=== PATIENT | female | born 1995 | race Caucasian/White ===

== ENCOUNTER 2019-10-30 12:10 | Emergency (ER) | payer OTHER, MEDICAID, SELFPAY ==
[2019-10-30 12:23] VITALS: BP 130/87; PULSE 88; RESP 18; TEMP 36.9; O2SAT 100
[2019-10-30 13:23] LABS: Influenza A - CEPHEID Flu A NEGATIVE (NEGATIVE); Influenza B - CEPHEID Flu B NEGATIVE (NEGATIVE)
--- NOTE | 2019-10-30 16:05 | ED.URI ---
HPI - URI/Sore Throat <AUGUSTO Hodges - Last Filed: 10/30/19 21:48> General Chief Complaint: Upper Respiratory Symptoms Stated Complaint: flu like symptoms Time Seen by Provider: 10/30/19 15:53 Source: patient Mode of arrival: Ambulatory Limitations: no limitations History of Present Illness HPI Narrative: 23-year-old female presents emergency department complaining of cough, rhinorrhea, sore throat, nasal congestion, and chills for the past 3-4 days. She states other people around her have been sick as well. She is unsure about fevers as she reports her thermometer is broken at home. She is worried she may have influenza. Patient denies any nausea, vomiting, diarrhea, abdominal pain, chest pain, shortness of breath, or other concerns. She does not take any medication and she denies any chronic illnesses such as asthma. Related Data Previous Rx's Medication Instructions Recorded promethazine-codeine 5 ml PO Q4HP PRN #120 ml 11/07/17 Allergies Allergy/AdvReac Type Severity Reaction Status Date / Time No Known Allergies Allergy Uncoded 01/10/18 12:48 Review of Systems <AUGUSTO Hodges - Last Filed: 10/30/19 21:48> Review of Systems Narrative: REVIEW OF SYSTEMS: GENERAL: Denies fevers. HENT: No head trauma or hearing loss. EYES: No loss of vision, double vision, eye pain, irritation or discharge. CARDIOVASCULAR: No chest pain or syncope. RESPIRATORY: No shortness of breath. Complains of cough, see HPI. GASTROINTESTINAL: No nausea, vomiting, diarrhea, or constipation. MUSCULOSKELETAL: No weakness or injury. INTEGUMENTARY: No rash, lesions, or pruritus. NEURO: No memory loss, or confusion. Patient History <AUGUSTO Hodges - Last Filed: 10/30/19 21:48> Medical History No significant medical problems (Acute) Social History Smoking Status: Current every day smoker Smoking Status: Current every day smoker Substance Use Type: marijuana Exam <AUGUSTO Hodges - Last Filed: 10/30/19 21:48> Initial Vital Signs Initial Vital Signs: Vital Signs Temperature 98.4 F 10/30/19 12:23 Pulse Rate 88 10/30/19 12:23 Respiratory Rate 18 10/30/19 12:23 Blood Pressure 130/87 10/30/19 12:23 Pulse Oximetry 100 10/30/19 12:23 PHYSICAL EXAMINATION: GENERAL: Well groomed, alert, and cooperative. Answers questions promptly and appropriately. Vital signs noted. HENT: Normocephalic, atraumatic. Ear canals patent. TMs intact without mucus or erythema. Oropharynx with mild erythema, tonsils 1+ and equal bilaterally, no exudate EYES: Conjunctiva pink, sclera white, no periorbital swelling. No discharge. CHEST: Normal to inspection and without deformities. CARDIOVASCULAR: S1 and S2 sounds normal. Regular rate and rhythm, no murmurs, clicks, or bruits. RESPIRATORY: Normal respiratory rate, trachea midline, airway patent. No stridor, nasal flaring or accessory muscle use. Able to speak in full sentences. Lungs are clear in all caban without wheeze, rhonchi, or crackles. Dry cough noted throughout examination. MUSCULOSKELETAL: Normal gait and coordination. Equal tone and mass bilaterally. EXTREMITIES: Moves all extremities. SKIN: Warm, dry, soft, appropriate color for ethnicity. No lesions, rashes, or wounds to visualized areas. NEURO: Alert and Oriented X 3. Good coordination. No ataxia or cognitive issues. PSYCH: Appropriate affect and mood. <Solitario Galloway MD - Last Filed: 10/30/19 21:57> Initial Vital Signs Initial Vital Signs: Vital Signs Temperature 98.4 F 10/30/19 12:23 Pulse Rate 88 10/30/19 12:23 Respiratory Rate 18 10/30/19 12:23 Blood Pressure 130/87 10/30/19 12:23 Pulse Oximetry 100 10/30/19 12:23 Course <AUGUSTO Hodges - Last Filed: 10/30/19 21:48> Orders Ordered: ED Orders 10/30/19 12:25 Flu test [Influenza A & B (PCR)] Stat Vital Signs Vital signs: Vital Signs - 8 hr 10/30/19 16:20 Temperature 98.1 F Pulse Rate 75 Blood Pressure 110/75 Pulse Oximetry 100 <Solitario Galloway MD - Last Filed: 10/30/19 21:57> Orders Ordered: ED Orders 10/30/19 12:25 Flu test [Influenza A & B (PCR)] Stat Vital Signs Vital signs: Vital Signs - 8 hr 10/30/19 16:20 Temperature 98.1 F Pulse Rate 75 Blood Pressure 110/75 Pulse Oximetry 100 MDM - URI/Sore Throat <Anabell AUGUSTO Alvarez - Last Filed: 10/30/19 21:48> Medical Records Attestation: I reviewed the patient's medical records. Lab Data Attestation: I reviewed the patient's lab results. Labs: Lab Results 10/30/19 Range/Units 12:25 Influenza A (RT-PCR) Flu a negative (NEGATIVE) Influenza B (RT-PCR) Flu b negative (NEGATIVE) MDM Narrative Medical decision making narrative: 23-year-old healthy female presents emergency department for complaints of fevers and upper respiratory symptoms. Patient flu swab was negative. Differential include viral etiology due to short duration of onset of symptoms and decreased fevers. Less likely pneumonia due to benign lung examination. No concerns for sepsis due to lack of fever or tachycardia. Patient was encouraged to use Flonase in dovq-fhr-vxqryqn cold medication. Encouraged to follow up with her primary care provider in 1-2 weeks for further evaluation if symptoms continue. Patient mother agreed to plan of care verbalized understanding. <Solitario Galloway MD - Last Filed: 10/30/19 21:57> Lab Data Labs: Lab Results 10/30/19 Range/Units 12:25 Influenza A (RT-PCR) Flu a negative (NEGATIVE) Influenza B (RT-PCR) Flu b negative (NEGATIVE) Discharge Plan Departure Patient Disposition: Home Clinical Impression: Upper respiratory virus Discharge Date/Time: 10/30/19 16:24 Instructions: DI for Viral Upper Respiratory Infection -- Adult Activity Restrictions/Additional Instructions: Thank you for entrusting me with your care today. As discussed, your swab was negative for influenza. You most likely have another respiratory virus. Please take dzjy-[id number] cold medications such as DayQuil or NyQuil to help with symptoms. You can use Flonase intranasally, 1 spray each nostril morning and night for the next 2 weeks to help with nasal congestion and postnasal drip. You may use Neti pot rinses as well. Follow up with your primary care provider in 1-2 weeks for further evaluation if symptoms continue. Return emergency department for new or worsening symptoms such as chest pain, shortness of breath, high fevers that do not resolve with Tylenol ibuprofen, uncontrollable vomiting, or other concerns. Prescriptions: No Action promethazine-codeine 6.25 MG/10 MG syrup 5 ml PO Q4HP PRNQty: 120 RF: 0
[2019-10-30 16:20] VITALS: BP 110/75; PULSE 75; TEMP 36.7; O2SAT 100
== END 2019-10-30 16:24 | disposition home or self-care (01) ==
PROVIDERS: Emergency Medicine; Emergency Provider Nurse Practitioner
DX: J06.9 Acute upper respiratory infection, unspecified (principal)
CPT/HCPCS: 87502; 99281; 99282

== ENCOUNTER 2020-04-29 15:58 | Emergency (ER) | payer OTHER, MEDICAID, SELFPAY ==
[2020-04-29] VITALS (7 sets, daily range): BP systolic 101–134; BP diastolic 59–78; PULSE 69–114; RESP 16–18; TEMP 36.7; O2SAT 97–100; BMI 35.4
[2020-04-29 16:36] LABS: Bacteria Urine None Seen; WBC Urine None Seen (0-5/HPF)
[2020-04-29 16:40] LABS: RBC Urine 10-30/HPF (0-5/HPF); Squamous Epithelial Cell Urine 5-10 /HPF (0-5/HPF)
[2020-04-29 16:41] LABS: Culture Indicated Urine Cult Not Indicated; Mucus Urine 2+ (Negative)
--- NOTE | 2020-04-29 19:12 | ED_ITS ---
HPI - Female Genitourinary General Chief complaint: Urogenital-Female Stated complaint: back, kidney pain Time Seen by Provider: 04/29/20 19:12 Source: patient Mode of arrival: Ambulatory Limitations: no limitations History of Present Illness HPI Narrative: 24-year-old woman otherwise healthy within IUD in place for control presents with left-sided flank pain with urinary urgency that began abruptly at 10:00 a.m. this morning. She describes no fevers or chills. Discomfort with urinating since 10:00 a.m. no gross hematuria. No vaginal discharge, no new sexual partners. She has no history of prior kidney stones. Related Data Previous Rx's Medication Instructions Recorded promethazine-codeine 5 ml PO Q4HP PRN #120 ml 11/07/17 sulfamethoxazole-trimethoprim 1 tab PO BID #14 tab 04/29/20 Allergies Allergy/AdvReac Type Severity Reaction Status Date / Time No Known Allergies Allergy Verified 04/29/20 19:20 Review of Systems Review of Systems Narrative: Pertinent positive and negative findings as per HPI Remainder of review of systems is otherwise unremarkable for Constitutional: Fevers, chills, weakness ENT: No sore throat, neck pain, ear pain CV: Chest pain, palpitations, dyspnea on exertion Respiratory: Cough, wheeze, dyspnea GI: Nausea, vomiting, diarrhea, change in bowel habits, black or bloody stools Neuro: Syncope, dizziness, tingling Patient History Medical History IUD (intrauterine device) in place (Acute) No significant medical problems (Acute) Substance Use Type: marijuana Exam Narrative Exam Narrative: General: Healthy appearing, in mild distress. Able to give a complete and coherent history. Well-nourished well-developed HEENT: Moist mucous membranes, normal sclera with reactive pupils, Respiratory: Lungs are clear to auscultation, no wheezing no rales no rhonchi. Full and symmetrical air movement Cardiac: Regular rate and rhythm no murmurs no bruits Abdomen: Soft, nontender, good bowel tones, mild left flank pain Skin: Warm and dry, no rashes Neurologic: Grossly neurologically intact with no obvious asymmetries or abnormalities Extremities: No trauma, well perfused Psych: Cooperative, appropriate insight and affect Initial Vital Signs Initial Vital Signs: Vital Signs Temperature 98.1 F 04/29/20 16:05 Pulse Rate 114 H 04/29/20 16:05 Respiratory Rate 18 04/29/20 16:05 Blood Pressure 131/63 04/29/20 16:05 Pulse Oximetry 100 04/29/20 16:05 Course Orders Ordered: ED Orders 04/29/20 16:15 Urine Microscopic Stat 04/29/20 19:17 CT kidney ureter bladder (KUB) Stat 04/29/20 19:25 Complete Blood Count AUTO DIFF Stat Comprehensive Metabolic Panel Stat Discontinued Medications Sodium Chloride (Normal Saline 0.9%) 1,000 mls @ 1,000 mls/hr IV BOLUS ONE Stop: 04/29/20 20:16 Last Admin: 04/29/20 19:47 Dose: 1,000 mls/hr Documented by: [email or web address] Ketorolac Tromethamine (Toradol) 15 mg IV NOW ONE Stop: 04/29/20 19:18 Last Admin: 04/29/20 19:47 Dose: 15 mg Documented by: [email or web address] Oxycodone/Acetaminophen (Percocet 5/325) 1 tab PO NOW ONE Stop: 04/29/20 23:37 Oxycodone/Acetaminophen (Endocet 5/325 Prepack) 1 bottle MISC SEEINSTR ONE Stop: 04/29/20 23:37 Trimethoprim/Sulfamethoxazole (Bactrim Ds) 1 tab PO NOW ONE Stop: 04/29/20 23:37 Vital Signs Vital signs: Vital Signs - 8 hr 04/29/20 16:05 04/29/20 19:06 04/29/20 19:10 Temperature 98.1 F Pulse Rate 114 H 69 74 Respiratory Rate 18 16 Blood Pressure 131/63 131/72 Pulse Oximetry 100 97 100 04/29/20 19:20 04/29/20 20:05 04/29/20 21:20 Temperature Pulse Rate 74 82 79 Respiratory Rate 16 16 16 Blood Pressure 110/64 134/78 115/63 Pulse Oximetry 99 99 100 04/29/20 22:50 Temperature Pulse Rate 74 Respiratory Rate 16 Blood Pressure 101/59 L Pulse Oximetry 100 MDM - Female Genitourinary Medical Records Attestation: I reviewed the patient's medical records. Lab Data Attestation: I reviewed the patient's lab results. Result diagrams: 04/29/20 19:25 04/29/20 19:25 Labs: Lab Results 04/29/20 04/29/20 04/29/20 Range/Units 16:15 19:25 19:25 WBC 14.4 H (4.5-11.0) X10^3/uL RBC 4.65 (4.0-5.2) X10^6/uL Hgb 13.9 (12.0-16.0) g/dL Hct 41.4 (36-46) % MCV 89.2 (80-100) fL MCH 29.9 (26-34) PG MCHC 33.5 (30-36) % RDW 12.2 (11.6-14.8) % Plt Count 318 (150-400) X10^3/uL Neut % (Auto) 67.1 (50-75) % Lymph % (Auto) 23.1 L (25-40) % [place] % (Auto) 5.9 (3-14) % Eos % (Auto) 3.0 (2-4) % Baso % (Auto) 0.9 (0-2) % Neut # (Auto) 9700 H (2784-9164) /uL Lymph # (Auto) 3300 (5948-4334) /uL [place] # (Auto) 900 (0-900) /uL Eos # (Auto) 400 (0-450) /uL Baso # (Auto) 100 (0-100) /uL Sodium 139 (137-145) mmol/L Potassium 4.4 (3.4-5.1) mmol/L Chloride 105 (98-107) mmol/L Carbon Dioxide 27 (22-32) mmol/L BUN 16 (7-17) mg/dL Creatinine 0.75 (0.52-1.04) mg/dL Estimated GFR > 60.0 (>60) mL/min BUN/Creatinine Ratio 21.3 (6-22) Glucose 78 (70-100) mg/dL Calcium 9.6 (8.4-10.2) mg/dL Total Bilirubin 0.5 (0.2-1.3) mg/dL AST 27 (14-36) IU/L ALT 19 (<35) IU/L Alkaline Phosphatase 74 (38-126) U/L Total Protein 7.5 (6.3-8.2) g/dL Albumin 4.5 (3.5-5.0) g/dL Globulin 3.0 (1.7-4.1) g/dL Albumin/Globulin Ratio 1.5 (1.0-2.8) Urine RBC 10-30/hpf H (0-5/HPF) Urine WBC None seen (0-5/HPF) Ur Squamous Epith Cells 5-10 /hpf H (0-5/HPF) Urine Bacteria None seen (None) Urine Mucus 2+ H (Negative) Ur Culture Indicated? Cult not indicated Point of Care Testing Test Results Negative Urine Dip Bedside Urine Glucose Negative Bedside Urine Bilirubin - Negative Bedside Urine Ketone +/- 5 Urine Specific [place] 1.025 Bedside Urine Occult Blood ++ Bedside Urine pH 6.0 Bedside Urine Protein + 30 Bedside Urine Urobilinogen - Negative Bedside Urine Nitrite - Negative Bedside Urine Leukocytes - Negative Esterase Imaging Data CT scan - abdomen/pelvis: Radiologist's Impression: Urinary system: Both kidneys are normal in size. A few, three or four, nonobstructing left intrarenal calcifications too small to measure. No hydronephrosis or perinephric fat stranding. Both ureters appear non-dilated throughout their expected courses. Bladder wall thickness is normal; no calcified bladder stones. IMPRESSION: 1. A few scattered punctate left intrarenal calcifications. No CT evidence of obstructive uropathy. 2. Cholecystectomy and IUD placement. Dictated by: Danielle aMrtinez M.D. on 04/29/2020 at 19:51 MDM Narrative Medical decision making narrative: Woman with left flank pain and dysuria. Urinalysis has red blood cells but no obvious bacteria or white blood cells. Cultures pending. CT scan is done that does not show ureteral stones or eviden ce of recently passed stones. There is no evidence of sepsis. At this point will treat her for a UTI based on leukocytosis and symptomatology. If symptoms change or are not resolved after a course of Septra will ask her to return for further evaluation. Suspicions findings and concerns are reviewed with patient. She still having a moderate amount of pain. After the Toradol. The pain in her back seems to include paraspinous muscles as well it may well be that she simply has a developing bladder infection and musculoskeletal back pain. I have advised her that we will treat her pain treat a bladder infection will were waiting for urine culture to return but still do not have a definitive diagnosis and if she is worsening she does need further evaluation. Discharge Plan Departure Patient Disposition: Home Clinical Impression: UTI (urinary tract infection) Qualifiers: Urinary tract infection type: acute cystitis Hematuria presence: with hematuria Qualified Code(s): N30.01 - Acute cystitis with hematuria Back pain Qualifiers: Back pain location: low back pain Chronicity: acute Back pain laterality: left Sciatica presence: without sciatica Qualified Code(s): M54.5 - Low back pain Instructions: DI for Urinary Tract Infection (UTI) Activity Restrictions/Additional Instructions: Thank you for coming in today Your CT scan was very reassuring. There is no evidence of an acute kidney stone or 1 that has recently passed. There also does not appear to be an obvious kidney infection, no masses, no diverticulitis and no obvious issues with her spine to explain the pain the your having. Your urine has red blood cells in it but I do not see bacteria. I am going to suggest that we treat you for a bladder infection given the urine that were seeing and the urgency symptoms that you are having. Please complete the full course of Septra. For the back pain I am going to suggest that we simply treat the pain and see how your body responds. Using 400 mg of ibuprofen (2 ciqd-qmy-gpbzdbh pills) and 1 Tylenol every 6 hours can be very helpful in controlling pain. For severe pain, 400 mg of ibuprofen and 1 Percocet may be more effective. Please follow-up with your primary care physician If you are getting worse or you develop new symptoms you do need to return to the emergency department Prescriptions: New sulfamethoxazole-trimethoprim 800-160 mg tablet 1 tab PO BID Qty: 14 RF: 0 No Action promethazine-codeine 6.25 MG/10 MG syrup 5 ml PO Q4HP PRNQty: 120 RF: 0
--- NOTE | 2020-04-29 19:17 | DI.CT.S_ITS ---
PROCEDURE: CT KIDNEY URETER BLADDER (KUB) INDICATIONS: left flank pain, concern for kidney stone TECHNIQUE: Noncontrast 5 mm thick sections acquired from the diaphragms to the symphysis. 5 mm thick coronal and sagittal reformats were then performed. For radiation dose reduction, the following was used: automated exposure control, adjustment of mA and/or kV according to patient size. COMPARISON: [facility], CT, KIDNEY/ URETER/BLADDER, 08/06/2017, 19:50. FINDINGS: Image quality: Excellent. Lung bases: Lung bases are clear. Heart size is normal. Urinary system: Both kidneys are normal in size. A few, three or four, nonobstructing left intrarenal calcifications too small to measure. No hydronephrosis or perinephric fat stranding. Both ureters appear non-dilated throughout their expected courses. Bladder wall thickness is normal; no calcified bladder stones. Other solid organs: Liver is normal in size. Gallbladder is surgically absent . Pancreas is normal in contours. Spleen is normal in size. No adrenal nodules. Peritoneum and bowel: Unenhanced bowel loops demonstrate normal wall thickness and caliber. Normal appendix. No free fluid or air. Nodes and vessels: No retroperitoneal or mesenteric adenopathy by size criteria. Aorta and inferior vena cava are normal in caliber. Abdominal wall: No ventral hernias. Pelvis: No free pelvic fluid. No inguinal hernias or adenopathy. The uterus contains a T-shaped IUD. There is a dominant follicle in the left ovary. The right ovary appears normal. Bones: No suspicious bony lesions. No vertebral body compression fractures. IMPRESSION: 1. A few scattered punctate left intrarenal calcifications. No CT evidence of obstructive uropathy. 2. Cholecystectomy and IUD placement. Dictated by: Danielle Martinez M.D. on 04/29/2020 at 19:51 Approved by: Danielle Martinez M.D. on 04/29/2020 at 19:54
[2020-04-29 19:34] LABS: Add Manual Diff / Slide Review NO; Basophils Absolute Auto 100 /uL (0-100); Basophils Percent Auto 0.9 % (0-2); Eosinophils Absolute Auto 400 /uL (0-450); Hematocrit 41.4 % (36-46); Hemoglobin 13.9 g/dL (12.0-16.0); Lymphocytes Absolute Auto 3300 /uL (1100-4500); Lymphocytes Percent Auto 23.1 % (25-40); Mean Corpuscular HGB Conc 33.5 % (30-36); Mean Corpuscular Hemoglobin 29.9 PG (26-34); Mean Corpuscular Volume 89.2 fL (80-100); Monocytes Absolute Auto 900 /uL (0-900); Monocytes Percent Auto 5.9 % (3-14); Neutrophils Absolute Auto 9700 /uL (1500-7000); Neutrophils Percent Auto 67.1 % (50-75); Platelet Count 318 X10^3/uL (150-400); Red Blood Cell Count 4.65 X10^6/uL (4.0-5.2); Red Cell Distribution Width 12.2 % (11.6-14.8); White Blood Cell Count 14.4 X10^3/uL (4.5-11.0)
[2020-04-29 19:44] LABS: Alanine Aminotransferase 19 IU/L (<35); Albumin 4.5 g/dL (3.5-5.0); Albumin Globulin Ratio 1.5 (1.0-2.8); Alkaline Phosphatase 74 U/L (38-126); Aspartate Aminotransferase 27 IU/L (14-36); BUN Creatinine Ratio 21.3 (6-22); Bilirubin Total 0.5 mg/dL (0.2-1.3); Blood Urea Nitrogen 16 mg/dL (7-17); Calcium 9.6 mg/dL (8.4-10.2); Carbon Dioxide 27 mmol/L (22-32); Chloride 105 mmol/L (98-107); Estimated Glomerular Filt Rate > 60.0 mL/min (>60); Glucose 78 mg/dL (70-100); HEMOLYSIS 38 (0-50); Potassium 4.4 mmol/L (3.4-5.1); Sodium 139 mmol/L (137-145); Total Protein 7.5 g/dL (6.3-8.2)
[2020-04-29] MEDS: KETOROLAC 60 MG/2 ML VIAL 15 MG IV (19:47)
[2020-04-29] MEDS: SODIUM CHLORIDE 0.9% 1,000 ML 1000 ML IV (19:47)
[2020-04-29] MEDS: OXYCODONE/ACETAMINOPHEN 5/325 TABLET 1 TAB PO (23:48)
[2020-04-29] MEDS: OXYCODONE/APAP 5/325 PREPACK 1 BOTTLE MISC (23:48)
[2020-04-29] MEDS: TRIMETH/SULFA 160/800 (DS) TABLET 1 TAB PO (23:48)
== END 2020-04-30 00:10 | disposition home or self-care (01) ==
PROVIDERS: Emergency Medicine; Emergency Provider Emergency Medicine
DX: N30.01 Acute cystitis with hematuria (principal); M54.5 Low back pain; Z97.5 Presence of (intrauterine) contraceptive device
CPT/HCPCS: 36415; 74176; 80053; 81003; 81015; 81025; 85025; 96361; 96374; 99284; J1885

== ENCOUNTER 2020-09-12 07:22 | Emergency (ER) | payer OTHER, MEDICAID, SELFPAY ==
[2020-09-12] VITALS (10 sets, daily range): BP systolic 119–136; BP diastolic 77–84; PULSE 52–101; RESP 15–41; TEMP 36.8; O2SAT 97–100; BMI 38.9
--- NOTE | 2020-09-12 07:43 | DI.US.S_ITS ---
PROCEDURE: US RENAL COMPLETE INDICATIONS: RIGHT FLANK PAIN. QUESTION HYDRONEPHROSIS TECHNIQUE: Real-time scanning was performed of the kidneys and bladder, with image documentation. COMPARISON: [facility], CT, KIDNEY/ URETER/BLADDER, 08/06/2017, 19:50. [facility], CT, CT KIDNEY URETER BLADDER (KUB), 04/29/2020, 19:25. FINDINGS: Kidneys: Kidneys are normal in size. Right kidney measures 11.8 cm long; left kidney measures 11.5 cm long. Right renal cortical thickness is 1.6 cm; left renal cortical thickness is 1.9 cm. Renal cortical echotexture is normal. Mild left pelvocaliectasis compared to the right. The punctate calculus seen on prior CT is not appreciated which may be due to its small size or no longer present. No suspicious solid mass lesions. Bladder: Bladder is decompressed at time of image acquisition. IMPRESSION: Mild pelviocaliectasis of the left kidney compared to the right. This could be due to passing of a small left kidney stone which were seen on prior CT from April 2020 with resulting obstructing ureteral calculus. If clinically indicated CT KUB may be helpful for further evaluation. Dictated by: Scot Garcia M.D. on 09/12/2020 at 8:32 Approved by: Scot Garcia M.D. on 09/12/2020 at 8:37
--- NOTE | 2020-09-12 07:43 | ED_ITS ---
HPI - Abdominal Pain General Chief Complaint: Abdominal Pain Stated Complaint: abdominal/back pain trouble urinating Time Seen by Provider: 09/12/20 07:26 History of Present Illness HPI narrative: 24-year-old woman with an IUD in place and no other significant medical history presents with acute onset left flank pain awaking her from sleep at 4:30 a.m. last night with associated bilious vomiting secondary to pain. She has had similar symptoms in April and was seen in the emergency department that time. CT scan showed some punctate calculi in the left kidney and leukocytosis but urine was unremarkable and not reflexed for culture. She was treated with antibiotics based on leukocytosis and symptoms and did improve. She has had no interval symptoms. Related Data Previous Rx's Medication Instructions Recorded promethazine-codeine 5 ml PO Q4HP PRN #120 ml 11/07/17 sulfamethoxazole-trimethoprim 1 tab PO BID #14 tab 04/29/20 oxycodone-acetaminophen 1 tab PO Q6H PRN #14 tab 09/12/20 Allergies Allergy/AdvReac Type Severity Reaction Status Date / Time No Known Allergies Allergy Verified 04/29/20 19:20 Review of Systems Review of Systems Narrative: Pertinent positive and negative findings as per HPI Remainder of review of systems is otherwise unremarkable for Constitutional: Fevers, chills, weakness ENT: No sore throat, neck pain, ear pain CV: Chest pain, palpitations, dyspnea on exertion Respiratory: Cough, wheeze, dyspnea GI: diarrhea MS: Muscle weakness, numbness, joint swelling or warmth Skin: Rashes, nonhealing lesions Neuro: Syncope, dizziness, tingling Patient History Medical History (Updated 09/12/20 @ 10:45 by Renita Hicks MD) IUD (intrauterine device) in place No significant medical problems Social History Smoking Status: Current every day smoker Smoking Status: Current every day smoker Substance Use Type: marijuana Exam Narrative Exam Narrative: General: Healthy appearing, in moderate distress with left-sided flank pain radiating to the left anterior quadrant. Able to give a complete and coherent history. Well-nourished well-developed HEENT: Moist mucous membranes, normal sclera with reactive pupils, Neck: No JVD, supple Respiratory: Lungs are clear to auscultation, no wheezing no rales no rhonchi. Full and symmetrical air movement Cardiac: Regular rate and rhythm no murmurs no bruits Abdomen: Soft, mild diffuse tenderness with moderate to severe pain in the left lower quadrant without rebound or guarding, good bowel tones, mild left flank pain Skin: Warm and dry, no rashes Neurologic: Grossly neurologically intact with no obvious asymmetries or abnormalities Extremities: No trauma, well perfused Psych: Cooperative, appropriate insight and affect Initial Vital Signs Initial Vital Signs: Vital Signs Temperature 98.3 F 09/12/20 07:31 Pulse Rate 101 H 09/12/20 07:31 Respiratory Rate 16 09/12/20 07:31 Blood Pressure 136/84 09/12/20 07:31 Pulse Oximetry 97 09/12/20 07:31 Course Orders Ordered: ED Orders 09/12/20 07:35 Urinalysis and Microscopic Stat 09/12/20 07:43 US renal complete Stat 09/12/20 08:11 Complete Blood Count AUTO DIFF Stat Hydromorphone HCl (Hydromorphone 0.5 Mg Inj) 0.5 mg IV Q15MIN PRN PRN Reason: Pain, Last Admin: 09/12/20 09:54 Dose: 0.5 mg Documented by: YUSUF Discontinued Medications Lidocaine HCl 7.5 ml/ Sodium (Chloride) 57.5 mls @ 345 mls/hr IV NOW ONE Stop: 09/12/20 07:42 Last Infusion: 09/12/20 08:23 Dose: 0 mls/hr Documented by: Admin: 09/12/20 08:14 Dose: 345 mls/hr Documented by: YUSUF Sodium Chloride (Normal Saline 0.9%) 1,000 mls @ 1,000 mls/hr IV BOLUS ONE Stop: 09/12/20 08:40 Last Infusion: 09/12/20 09:54 Dose: 0 mls/hr Documented by: Admin: 09/12/20 08:14 Dose: 1,000 mls/hr Documented by: YUSUF Ketorolac Tromethamine (Ketorolac 60 Mg/2 Ml Vial) 15 mg IV NOW ONE Stop: 09/12/20 07:42 Last Admin: 09/12/20 08:14 Dose: 15 mg Documented by: YUSUF Ondansetron HCl (Ondansetron 4 Mg/2 Ml Inj) 4 mg IV NOW ONE Stop: 09/12/20 07:42 Last Admin: 09/12/20 08:14 Dose: 4 mg Documented by: YUSUF Vital Signs Vital signs: Vital Signs - 8 hr 09/12/20 07:31 09/12/20 08:04 09/12/20 08:30 Temperature 98.3 F Pulse Rate 101 H 66 52 L Respiratory Rate 16 41 H 24 Blood Pressure 136/84 Pulse Oximetry 97 100 MDM - Abdominal Pain Medical Records Attestation: I reviewed the patient's medical records. Lab Data Attestation: I reviewed the patient's lab results. Result diagrams: 09/12/20 08:11 Labs: Lab Results 09/12/20 09/12/20 Range/Units 07:35 08:11 WBC 13.2 H (4.5-11.0) X10^3/uL RBC 4.38 (4.0-5.2) X10^6/uL Hgb 13.3 (12.0-16.0) g/dL Hct 39.4 (36-46) % MCV 89.9 (80-100) fL MCH 30.3 (26-34) PG MCHC 33.7 (30-36) % RDW 12.0 (11.6-14.8) % Plt Count 181 (150-400) X10^3/uL Neut % (Auto) 78.7 H (50-75) % Lymph % (Auto) 13.7 L (25-40) % [place] % (Auto) 5.6 (3-14) % Eos % (Auto) 1.3 L (2-4) % Baso % (Auto) 0.7 (0-2) % Neut # (Auto) 06499 H (0225-9864) /uL Lymph # (Auto) 1800 (9822-5156) /uL Walker # (Auto) 700 (0-900) /uL Eos # (Auto) 200 (0-450) /uL Baso # (Auto) 100 (0-100) /uL Urine Color [place] Urine Appearance Cloudy Urine pH 6.0 (4.5-8.0) Ur Specific [place] 1.020 (1.000-1.035) Urine Protein 1+ H (Negative) Urine Glucose (UA) Negative (Negative) g/dL Urine Ketones Trace H (NEGATIVE) Urine Occult Blood 3+ H (Negative) Urine Nitrate Negative (Negative) Urine Bilirubin Negative (NEGATIVE) Urine Urobilinogen 0.2 (0.2) E.U./dL Ur Leukocyte Esterase Negative (NEGATIVE) Urine RBC 30-100/hpf H (0-5/HPF) Urine WBC None seen (0-5/HPF) Urine Bacteria None seen (None) Ur Culture Indicated? Cult not indicated Imaging Data US - abdomen: Radiologist's Impression: FINDINGS: Kidneys: Kidneys are normal in size. Right kidney measures 11.8 cm long; left kidney measures 11.5 cm long. Right renal cortical thickness is 1.6 cm; left renal cortical thickness is 1.9 cm. Renal cortical echotexture is normal. Mild left pelvocaliectasis compared to the right. The punctate calculus seen on prior CT is not appreciated which may be due to its small size or no longer present. No suspicious solid mass lesions. Bladder: Bladder is decompressed at time of image acquisition. IMPRESSION: Mild pelviocaliectasis of the left kidney compared to the right. This could be due to passing of a small left kidney stone which were seen on prior CT from April 2020 with resulting obstructing ureteral calculus. If clinically indicated CT KUB may be helpful for further evaluation. Dictated by: Scot Garcia M.D. on 09/12/2020 at 8:32 MDM Narrative Medical decision making narrative: 24-year-old woman with similar presentation to this summer. CT scan at that time did not show any acute stone however symp toms were consistent with that. She did have small stone in the left kidney that was appreciated at that time that is not seen today on ultrasound. Again symptoms and presentation with acute pain, quality and location of the pain, hematuria without other signs and symptoms are all very consistent with kidney stone. Mild pelviocaliectasis of the left kidney compared to the right does suggest renal stone disease. I believe the mild leukocytosis is demargination rather than infectious. No signs of acute renal failure. Pain is moderately controlled this point. Will discharge home with a strainer, oral pain medications and instructions on returning if symptoms are not improving. Discharge Plan Departure Patient Disposition: Home Clinical Impression: Left nephrolithiasis Instructions: DI for Kidney Stones Activity Restrictions/Additional Instructions: Thank you for coming in today Your ultrasound does show a sight bit of swelling in the tube from your kidney to your bladder and the very small kidney stone that was seen in your left kidney this summer is no longer seen. I suspect that you have passed this small stone. I am going to send you home with a urine strainer to see if you can identify the stone as it comes out. Once out, I would expect to have dull pain in your left kidney area for another 24 hours or so. Using 400 mg of ibuprofen (2 [id number] pills) and 1 Tylenol every 6 hours can be very helpful in controlling pain. For severe pain you can use 400 mg of ibuprofen and 1 oxycodone/acetaminophen. If you do use narcotic, make sure you are drinking plenty of fluid and extra fiber to avoid constipation. Prescription was electronically sent to [facility] for you today Please make sure in general your drinking enough fluid to keep yourself well hyd rated, this typically means keeping your urine a light yellow. If you are developing increasing pain that can not be controlled with pain medication at home or fevers or other symptoms, please feel free to return to the emergency department Prescriptions: New oxycodone-acetaminophen 5-325 mg tablet 1 tab PO Q6H PRN (Reason: pain) Qty: 14 RF: 0 No Action promethazine-codeine 6.25 MG/10 MG syrup 5 ml PO Q4HP PRNQty: 120 RF: 0 sulfamethoxazole-trimethoprim 800-160 mg tablet 1 tab PO BID Qty: 14 RF: 0
[2020-09-12] MEDS: ONDANSETRON 4 MG/2 ML INJ IV (08:14)
[2020-09-12] MEDS: SODIUM CHLORIDE 0.9% 1,000 ML 1000 ML IV (08:14)
[2020-09-12] MEDS: KETOROLAC 60 MG/2 ML VIAL 15 MG IV (08:14)
[2020-09-12] MEDS: LIDOCAINE 2% IV (08:14)
[2020-09-12] MEDS: SODIUM CHLORIDE 0.9% IV (08:14)
--- NOTE | 2020-09-12 08:17 | PC.NURSE ---
Pt placed on radiographer cardiac catheterization for lidocaine infusion.
[2020-09-12 08:24] LABS: Bacteria Urine None Seen; WBC Urine None Seen (0-5/HPF)
[2020-09-12 08:25] LABS: Add Manual Diff / Slide Review NO; Basophils Absolute Auto 100 /uL (0-100); Basophils Percent Auto 0.7 % (0-2); Eosinophils Absolute Auto 200 /uL (0-450); Eosinophils Percent Auto 1.3 % (2-4); Hematocrit 39.4 % (36-46); Hemoglobin 13.3 g/dL (12.0-16.0); Lymphocytes Absolute Auto 1800 /uL (1100-4500); Lymphocytes Percent Auto 13.7 % (25-40); Mean Corpuscular HGB Conc 33.7 % (30-36); Mean Corpuscular Hemoglobin 30.3 PG (26-34); Mean Corpuscular Volume 89.9 fL (80-100); Monocytes Absolute Auto 700 /uL (0-900); Monocytes Percent Auto 5.6 % (3-14); Neutrophils Absolute Auto 10400 /uL (1500-7000); Neutrophils Percent Auto 78.7 % (50-75); Platelet Count 181 X10^3/uL (150-400); Red Blood Cell Count 4.38 X10^6/uL (4.0-5.2); White Blood Cell Count 13.2 X10^3/uL (4.5-11.0)
[2020-09-12 08:28] LABS: Appearance Urine UA CLOUDY; Bilirubin Urine UA NEGATIVE (NEGATIVE); Color Urine UA ORANGE; Glucose Urine UA NEGATIVE (Negative); Ketones Urine UA TRACE (NEGATIVE); Leukocyte Esterase Urine UA NEGATIVE (NEGATIVE); Nitrite Urine UA NEGATIVE (Negative); Occult Blood Urine UA 3+ (Negative); Protein Urine UA 1+ (Negative); Urobilinogen Urine UA 0.2 E.U./dL (0.2)
[2020-09-12 08:32] LABS: Culture Indicated Urine Cult Not Indicated; RBC Urine 30-100/HPF (0-5/HPF)
[2020-09-12] MEDS: HYDROMORPHONE 0.5 MG INJ IV (09:54)
[2020-09-12] MEDS: OXYCODONE/ACETAMINOPHEN 5/325 TABLET 1 TAB PO (11:04)
== END 2020-09-12 11:05 | disposition home or self-care (01) ==
PROVIDERS: Emergency Provider Emergency Medicine
DX: N20.0 Calculus of kidney (principal); Z87.442 Personal history of urinary calculi; R11.10 Vomiting, unspecified; Z97.5 Presence of (intrauterine) contraceptive device
CPT/HCPCS: 36415; 76770; 81001; 85025; 96361; 96374; 96375; 99283; 99284; J1170; J1885; J2405

== ENCOUNTER 2022-12-30 05:36 | Emergency (ER) | payer OTHER, MEDICAID, SELFPAY ==
[2022-12-30 05:47] VITALS: BP 140/93; PULSE 102; RESP 18; O2SAT 98; BMI 46.0
--- NOTE | 2022-12-30 05:51 | DI.CT.S_ITS ---
PROCEDURE: CT KIDNEY URETER BLADDER (KUB) INDICATIONS: Left-sided flank pain eval for stone TECHNIQUE: Axial sections were acquired from the lung bases to the pubic symphysis. Coronal and sagittal reformats were performed. For radiation dose reduction, the following was used: automated exposure control, adjustment of mA and/or kV according to patient size. COMPARISON: [facility], CT, CT KIDNEY URETER BLADDER (KUB), 04/29/2020, 19:25. FINDINGS: Image quality: Good Lower chest: Possible small hiatal hernia. Normal heart size. Solid organs: Liver is unremarkable on noncontrast evaluation. Gallbladder is absent. No pathologic biliary ductal or pancreatic ductal dilation. No splenomegaly. No adrenal nodules. No calcified stone in the right kidney. No right hydronephrosis. Mild left hydronephrosis. There is also mildly edematous left kidney. There is a 1 mm stone at the left UVJ. Tiny 1 mm calculi also seen inside the left kidney calices. Vessels and lymph nodes: No pathologic adenopathy by size criteria or abdominal aortic aneurysm. Bowel and peritoneum: No evidence of small bowel obstruction. No pathologic ascites. Normal appendix Body wall: Unremarkable Pelvis: IUD in place. Bladder is under distended. Reproductive organs are not well evaluated on on CT, overall physiologic appearing. Bones: No acute or suspicious osseous finding. IMPRESSION: Obstructing 1 mm stone in the left UVJ, with resultant left mild hydronephrosis and edema. Tiny 1 mm calculi also seen within the left renal calices. Other findings as above. Agree with preliminary report. Dictated by: Guillaume Jimenez M.D. on 12/30/2022 at 8:13 Approved by: Guillaume Jimenez M.D. on 12/30/2022 at 8:16
--- NOTE | 2022-12-30 05:51 | ED_ITS ---
HPI - General Adult General Chief complaint: Urogenital-Female Stated complaint: Possible kidney stone Time Seen by Provider: 12/30/22 05:41 Source: patient Mode of arrival: Ambulatory Limitations: no limitations History of Present Illness HPI narrative: 27-year-old female who here for evaluation of left-sided flank pain. States that the symptoms started within the past couple hours. She recently was treated for a urinary tract infection in the burning and frequency that she was having has resolved. She states she has had a kidney stone in the past and this feels similar to that only worse. Of fevers. No change in bowel habits. Related Data Previous Rx's Medication Instructions Recorded promethazine 6.25 mg-codeine 10 5 ml PO Q4HP PRN #120 mL 11/07/17 mg/5 mL syrup sulfamethoxazole 800 1 tab PO BID #14 tabs 04/29/20 mg-trimethoprim 160 mg tablet oxycodone-acetaminophen 5 mg-325 1 tab PO Q6H PRN pain #14 tabs 09/12/20 mg tablet Allergies Allergy/AdvReac Type Severity Reaction Status Date / Time No Known Allergies Allergy Verified 04/29/20 19:20 Review of Systems Constitutional Constitutional: Reports system reviewed and no additional complaints, except as documented Gastrointestinal Gastrointestinal: Reports system reviewed and no additional complaints, except as documented Genitourinary Genitourinary: Reports system reviewed and no additional complaints, except as documented Integumentary/Breasts Skin/Breast: Reports system reviewed and no additional complaints, except as documented Patient History Medical History IUD (intrauterine device) in place No significant medical problems Social History Smoking Status: Current every day smoker Smoking Status: Current every day smoker Substance Use Type: marijuana Exam Initial Vital Signs Initial Vital Signs: Vital Signs Pulse Rate 102 H 12/30/22 05:47 Respiratory Rate 18 12/30/22 05:47 Blood Pressure 140/93 H 12/30/22 05:47 Pulse Oximetry 98 12/30/22 05:47 Oxygen Delivery Method Room Air 12/30/22 05:47 HENMT Head: normal to inspection and normocephalic GI Inspection: non-distended Palpation: tender Back/Spine/Pelvis Back: CVA tenderness left Extrem General: normal to inspection and capillary refill normal Course Orders Ordered: ED Orders 12/30/22 05:40 Urine Microscopic Stat 12/30/22 05:50 Basic Metabolic Panel Stat Complete Blood Count AUTO DIFF Stat 12/30/22 05:51 CT kidney ureter bladder (KUB) Stat Discontinued Medications Hydromorphone HCl (Hydromorphone 1 Mg Inj) 1 mg IV NOW ONE Stop: 12/30/22 06:24 Last Admin: 12/30/22 06:31 Dose: 1 mg Documented By: BASIA Ketorolac Tromethamine (Ketorolac 30 Mg/Ml Vial) 30 mg IV NOW ONE Stop: 12/30/22 05:47 Last Admin: 12/30/22 06:01 Dose: 30 mg Documented By: BASIA Vital Signs Vital signs: Vital Signs - 8 hr 12/30/22 05:47 Pulse Rate 102 H Respiratory Rate 18 Blood Pressure 140/93 H Pulse Oximetry 98 Oxygen Delivery Method Room Air Medical Decision Making Lab Data Lab results reviewed: Yes I reviewed the patient's lab results. 12/30/22 05:50 12/30/22 05:50 Labs: Lab Results 12/30/22 12/30/22 12/30/22 Range/Units 05:40 05:50 05:50 WBC 11.2 H (4.5-11.0) X10^3/uL RBC 4.67 (4.0-5.2) X10^6/uL Hgb 13.9 (12.0-16.0) g/dL Hct 40.7 (36-46) % MCV 87.2 (80-100) fL MCH 29.9 (26-34) PG MCHC 34.2 (30-36) % RDW 12.2 (11.6-14.8) % Plt Count 363 (150-400) X10^3/uL Neut % (Auto) 65.1 (50-75) % Lymph % (Auto) 22.8 L (25-40) % [place] % (Auto) 7.9 (3-14) % Eos % (Auto) 3.2 (2-4) % Baso % (Auto) 1.0 (0-2) % Neut # (Auto) 7300 H (3528-2847) /uL Lymph # (Auto) 2600 (2507-4543) /uL [place] # (Auto) 900 (0-900) /uL Eos # (Auto) 400 (0-450) /uL Baso # (Auto) 100 (0-100) /uL Sodium 139 (137-145) mmol/L Potassium 4.0 (3.4-5.1) mmol/L Chloride 107 (98-107) mmol/L Carbon Dioxide 23 (22-32) mmol/L BUN 18 H (7-17) mg/dL Creatinine 0.87 (0.52-1.04) mg/dL Estimated GFR > 60 (>60) mL/min BUN/Creatinine Ratio 20.7 (6-22) Glucose 124 H (70-100) mg/dL Calcium 9.6 (8.4-10.2) mg/dL Urine RBC 1-5/hpf D (0-5/HPF) Urine WBC None seen (0-5/HPF) Ur Squamous Epith Cells 1-5 /hpf (0-5/HPF) Urine Bacteria Moderate (10-30) H (None) Ur Culture Indicated? Cult not indicated Point of Care Testing Test Results Negative Urine Dip Bedside Urine Glucose Negative Bedside Urine Bilirubin - Negative Bedside Urine Ketone - Negative Urine Specific [place] 1.020 Bedside Urine Occult Blood + Bedside Urine pH 6.0 Bedside Urine Protein - Negative Bedside Urine Urobilinogen - Negative Bedside Urine Nitrite - Negative Bedside Urine Leukocytes - Negative Esterase Point of care testing: Point of Care Testing Test Results Negative Urine Dip Bedside Urine Glucose Negative Bedside Urine Bilirubin - Negative Bedside Urine Ketone - Negative Urine Specific [place] 1.020 Bedside Urine Occult Blood + Bedside Urine pH 6.0 Bedside Urine Protein - Negative Bedside Urine Urobilinogen - Negative Bedside Urine Nitrite - Negative Bedside Urine Leukocytes - Negative Esterase ECG Data Interpretation: Mild left-sided hydroureter nephrosis with a punctate calculus near the left UVJ Additional nonobstructing left renal calculi MDM Narrative Medical decision making narrative: Patient does have a punctate left distal ureteral stone. Kidney functions unremarkable. Has bacteria in her urine but was just recently treated with antibiotics. Does have hydro on the left. Afebrile. Toradol did not improve symptoms. Was given Dilaudid. Care turned over to Dr. Mayorga to evaluate response and disposition. Discharge Plan Departure Prescriptions: No Action promethazine-codeine 6.25 MG/10 MG syrup 5 ml PO Q4HP PRNQty: 120 0RF sulfamethoxazole-trimethoprim 800-160 mg tablet 1 tab PO BID Qty: 14 0RF oxycodone-acetaminophen 5-325 mg tablet 1 tab PO Q6H PRN (Reason: pain) Qty: 14 0RF Referrals: [facility] [place], [Other]
[2022-12-30] MEDS: KETOROLAC 30 MG/ML VIAL IV (06:01)
[2022-12-30 06:02] LABS: Bacteria Urine Moderate (10-30); RBC Urine 1-5/HPF (0-5/HPF); Squamous Epithelial Cell Urine 1-5 /HPF (0-5/HPF); WBC Urine None Seen (0-5/HPF)
[2022-12-30 06:04] LABS: Culture Indicated Urine Cult Not Indicated
[2022-12-30 06:08] LABS: Add Manual Diff / Slide Review NO; Basophils Absolute Auto 100 /uL (0-100); Eosinophils Absolute Auto 400 /uL (0-450); Eosinophils Percent Auto 3.2 % (2-4); Hematocrit 40.7 % (36-46); Hemoglobin 13.9 g/dL (12.0-16.0); Lymphocytes Absolute Auto 2600 /uL (1100-4500); Lymphocytes Percent Auto 22.8 % (25-40); Mean Corpuscular HGB Conc 34.2 % (30-36); Mean Corpuscular Hemoglobin 29.9 PG (26-34); Mean Corpuscular Volume 87.2 fL (80-100); Monocytes Absolute Auto 900 /uL (0-900); Monocytes Percent Auto 7.9 % (3-14); Neutrophils Absolute Auto 7300 /uL (1500-7000); Neutrophils Percent Auto 65.1 % (50-75); Platelet Count 363 X10^3/uL (150-400); Red Blood Cell Count 4.67 X10^6/uL (4.0-5.2); Red Cell Distribution Width 12.2 % (11.6-14.8); White Blood Cell Count 11.2 X10^3/uL (4.5-11.0)
[2022-12-30 06:13] LABS: BUN Creatinine Ratio 20.7 (6-22); Blood Urea Nitrogen 18 mg/dL (7-17); Calcium 9.6 mg/dL (8.4-10.2); Carbon Dioxide 23 mmol/L (22-32); Chloride 107 mmol/L (98-107); Estimated Glomerular Filt Rate > 60 mL/min (>60); Glucose 124 mg/dL (70-100); HEMOLYSIS < 15 (0-50); Sodium 139 mmol/L (137-145)
[2022-12-30] MEDS: HYDROMORPHONE 1 MG INJ IV ×2 (06:31→07:46)
[2022-12-30 07:40] VITALS: BP 112/63; PULSE 54; RESP 18; O2SAT 99
[2022-12-30] MEDS: ONDANSETRON 4 MG/2 ML INJ IV (07:45)
== END 2022-12-30 08:00 | disposition home or self-care (01) ==
PROVIDERS: Emergency Medicine; Emergency Provider Emergency Medicine
DX: N20.1 Calculus of ureter (principal)
CPT/HCPCS: 36415; 74176; 80048; 81003; 81015; 81025; 85025; 96374; 96375; 96376; 99284; J1170; J1885; J2405